=== PATIENT | male | born 1955 | race Caucasian/White ===

== ENCOUNTER → 2020-08-03 | Day surgery (SDC) | payer OTHER ==
[~2020-08-03] MED LIST: LACTATED RINGERS 1,000 ML IV ONE; LIDOCAINE 1% (10MG/ML) FOR IV START INTRADERMA ONE; PROPOFOL 10 MG/ML 20 ML VIAL IV ONE
[2020-08-03 10:13] VITALS: TEMP 98
--- NOTE | 2020-08-03 11:08 | P.OP ---
Date of Procedure: 08/03/20 Preoperative Diagnosis: Screening colonoscopy Postoperative Diagnosis: Polyp in descending colon polyp in rectum Procedure(s) Performed: Colonoscopy with hot snare polypectomy 2 Anesthesia: MAC Surgeon: Jono Simon Estimated Blood Loss (ml): 0 Condition: stable Disposition: PACU Description of Procedure: Patient is brought to the Endo suite placed in left lateral position underwent sedation per department of anesthesia timeout performed correct patient correct procedure correct site was verified rectal exam was performed no gross abnormalities are noted scope was passed from the rectum to the cecum with the slowly withdrawn being sure to visualize all singh of the colon on the way out there was a small pedunculated polyp noted within the descending colon this was removed via hot snare polypectomy. Scope was slowly withdrawn to the rectum where there was a small inflammatory polyp noted this was removed via hot snare polypectomy. These polyps were sent to pathology. Scope was retroflexed in rectum no gross abnormalities were noted scope was then removed patient tolerated the procedure well no apparent complications. He will need a repeat colonoscopy in 3-5 years pending path
[2020-08-03 11:09] VITALS: RESP 17
[2020-08-03 11:18] VITALS: BP 142/83; PULSE 66
== END | disposition home or self-care (01) ==
LOC: ORWHC2ENDO 09:43
PROVIDERS: ATTEND Student in an Organized Health Care Education/Training Program
DX: Z12.11 Encounter for screening for malignant neoplasm of colon (principal); D12.4 Benign neoplasm of descending colon; K62.1 Rectal polyp; I10 Essential (primary) hypertension; F17.210 Nicotine dependence, cigarettes, uncomplicated; Z79.899 Other long term (current) drug therapy; Z88.0 Allergy status to penicillin
CPT/HCPCS: 88305; 45385; J2704